=== PATIENT | male | born 1990 | race Caucasian/White ===

== ENCOUNTER 2016-11-06 19:13 | Emergency (ER) | payer SELFPAY ==
[~2016-11-06] VITALS: Ht 195.5 cm; Wt 108.9 kg
[~2016-11-06 19:13] MED LIST: AMOXICILLIN500 MG PO; ANAPROX DS550 MG PO; BACTRIM DS 8001 TA1 PO; DICLOFENAC POTA50 MG PO; LOTRISONE 0.05%1 CRE TP; NKHM; NKHM PO; PERCOCET 325 MG1 TA3 PO; ROBAXIN750 MG PO; TOBRADEX 0.1%-0.5 ML OPH; ULTRAM50 MG PO
[2016-11-06] MEDS ORDERED: ADVIL100 MG PO (19:26)
[2016-11-06] MEDS ORDERED: HYDROCODONE BIT1 T11 PO (21:21)
== END 2016-11-06 21:07 | disposition home or self-care (01) ==
LOC: ED 19:13
DX: S82.002A Unspecified fracture of left patella, initial encounter for closed fracture (principal); I10 Essential (primary) hypertension; F17.200 Nicotine dependence, unspecified, uncomplicated; W10.9XXA Fall (on) (from) unspecified stairs and steps, initial encounter; Y93.89 Activity, other specified; Y92.9 Unspecified place or not applicable; Y99.9 Unspecified external cause status

== ENCOUNTER 2018-02-16 09:09 | Emergency (ER) | payer SELFPAY ==
[~2018-02-16] VITALS: Ht 195.5 cm; Wt 97.1 kg
[~2018-02-16 09:09] MED LIST changes: +ADVIL100 MG PO; +HYDROCODONE BIT1 T11 PO; +KEFLEX500 M1 PO; +NAPROSYN500 MG PO
[2018-02-16] MEDS ORDERED: AMOXICILLIN500 M2 PO (09:36)
[2018-02-16] MEDS ORDERED: NAPROSYN500 MG PO (09:36)
== END 2018-02-16 10:14 | disposition home or self-care (01) ==
LOC: ED 09:09
DX: K08.89 Other specified disorders of teeth and supporting structures (principal); F17.200 Nicotine dependence, unspecified, uncomplicated

== ENCOUNTER → 2018-10-12 | Emergency (ER) | payer OTHER ==
[~2018-10-12] VITALS: Ht 195.5 cm; Wt 108.9 kg
[~2018-10-12] MED LIST changes: +AMOXICILLIN500 M2 PO; +AVPAK AZITHROM250 MG PO; +MUCINEX1200 M1 PO; +PREDNISONE50 MG PO; +PROAIR HFA8.5 GM INH
== END ==
LOC: ED 17:43
DX: J20.9 Acute bronchitis, unspecified (principal); J45.909 Unspecified asthma, uncomplicated; F17.200 Nicotine dependence, unspecified, uncomplicated; Z79.2 Long term (current) use of antibiotics; Z79.899 Other long term (current) drug therapy

== ENCOUNTER 2018-11-26 21:33 | Emergency (ER) | payer OTHER ==
[~2018-11-26] VITALS: Ht 195.5 cm; Wt 108.9 kg
[2018-11-27] MEDS ORDERED: FLOVENT HFA12 G1 INH (22:13)
[2018-11-27] MEDS ORDERED: PROVENTIL HFA6.7 GM INH (22:14)
== END 2018-11-27 00:12 | disposition home or self-care (01) ==
LOC: ED 21:33
DX: J02.9 Acute pharyngitis, unspecified (principal); J45.909 Unspecified asthma, uncomplicated; F17.200 Nicotine dependence, unspecified, uncomplicated

== ENCOUNTER 2018-11-27 22:10 | Emergency (ER) | payer OTHER ==
[~2018-11-27] VITALS: Ht 195.5 cm; Wt 106.6 kg
[2018-11-27] MEDS ORDERED: FLOVENT HFA12 G1 INH (22:13)
[2018-11-27] MEDS ORDERED: PROVENTIL HFA6.7 GM INH (22:14)
== END 2018-11-28 00:19 | disposition home or self-care (01) ==
LOC: ED 22:10
DX: J06.9 Acute upper respiratory infection, unspecified (principal); I10 Essential (primary) hypertension

== ENCOUNTER 2021-08-09 22:54 | Emergency (ER) | payer OTHER ==
[~2021-08-09] VITALS: Ht 195.5 cm; Wt 106.6 kg
[~2021-08-09 22:54] MED LIST changes: +FLOVENT HFA12 G1 INH; +PROVENTIL HFA6.7 GM INH
[2021-08-10 00:31] LABS: BILIRUBIN 1+ (Negative); BLOOD Negative (Negative); CLARITY Clear (Clear); COLOR Orange (Yellow); GLUCOSE Negative (Negative); KETONE Negative (Negative); LEUKO ESTERASE Trace (Negative); NITRITE Positive (Negative); SPECIFIC GRAVITY <= 1.005 (1.001-1.030)
[2021-08-10 00:54] LABS: BACTERIA TRACE
[2021-08-10] MEDS ORDERED: CIPRO500 MG PO (01:01)
== END 2021-08-10 01:30 | disposition home or self-care (01) ==
LOC: ED 22:54
PROVIDERS: Internal Medicine
DX: N39.0 Urinary tract infection, site not specified (principal)

== ENCOUNTER 2022-06-18 19:50 | Emergency (ER) | payer OTHER ==
[~2022-06-18] VITALS: Ht 195.5 cm; Wt 108.9 kg
[~2022-06-18 19:50] MED LIST changes: +CIPRO500 MG PO
[2022-06-18] MEDS ORDERED: CEPHALEXIN500 M1 PO (23:44)
[2022-06-18] MEDS ORDERED: PREDNISONE20 M1 PO (23:44)
[2022-06-18] MEDS ORDERED: PROAIR HFA8.5 GM INH (23:44)
== END 2022-06-18 23:56 | disposition home or self-care (01) ==
LOC: ED 19:50
DX: R06.02 Shortness of breath (principal); R07.0 Pain in throat; J39.2 Other diseases of pharynx